=== PATIENT | female | born 1985 | race Caucasian/White ===

== ENCOUNTER 2017-10-21 13:05 | Inpatient (IN) | payer OTHER ==
[~2017-10-21] VITALS: Ht 157.5 cm; Wt 76.7 kg
[2017-10-21] MEDS ORDERED: IV NS 0.9% 1,000 ML BAG IV ONE ×2 (13:30→15:00)
[2017-10-21] MEDS ORDERED: ONDANSETRON HCL/PF 4 MG/2 ML VIAL IVP ONE (13:30)
[2017-10-21] MEDS ORDERED: HYDROMORPHONE INJ 2 MG/ML DISP.SYRIN IV ONE (13:30)
[2017-10-21] MEDS ORDERED: ONDANSETRON HCL/PF 4 MG/2 ML VIAL ONE (13:42)
[2017-10-21] MEDS ORDERED: HYDROMORPHONE INJ 2 MG/ML DISP.SYRIN ONE (13:44)
--- NOTE | 2017-10-21 13:52 | NUR ---
pt rec 'd to e c/o 01/30 abd pain crying guraded iv strted 20g left labs sent to lab iv fluids , zofran 4 mg ivpa nd dilaudid 1 mg ivp now fammily at bedside vss AWAITING EVALUATION BY ER PROVIDER.
[2017-10-21 13:56] LABS: BASOPHILS # (AUTO) 0.3 /CMM (0.0-0.2); BASOPHILS % (AUTO) 1.6 % (0.0-2.0); HEMATOCRIT 41 % (33-45); HEMOGLOBIN 14.1 g/dL (11.5-14.8); LYMPHOCYTES # (AUTO) 0.5 /CMM (0.8-4.8); LYMPHOCYTES % (AUTO) 2.3 % (20.0-44.0); MEAN CORPUSCULAR HEMOGLOBIN 32 PG (26.0-33.0); MEAN CORPUSCULAR HGB CONC 34 g/dl (31.0-36.0); MEAN CORPUSCULAR VOLUME 94 fL (82-100); MONOCYTES # (AUTO) 0.3 /CMM (0.1-1.30); MONOCYTES % (AUTO) 1.4 % (2.0-12.0); NEUTROPHILS # (AUTO) 18.7 /CMM (1.8-8.9); NEUTROPHILS % (AUTO) 94.7 % (43.0-81.0); PLATELET COUNT (AUTO) 519 /CMM (150-450); RDW COEFFICIENT OF VARIATION 12.2 (11.5-15.0); RED BLOOD CELL COUNT(AUTO) 4.39 MIL/uL (4.0-5.2); WHITE BLOOD COUNT (AUTO) 19.8 K/uL (4.3-11.0)
[2017-10-21 14:17] LABS: INR 0.86 (0.85-1.15)
[2017-10-21 14:29] LABS: BILIRUBIN,DIRECT 6.9 mg/dL (0.0-0.2); BILIRUBIN,TOTAL 8.3 mg/dL (0.2-1.0); CALCIUM, SERUM 9.4 mg/dL (8.5-10.1); CREATININE 0.7 mg/dL (0.6-1.3); POTASSIUM 3.2 mmol/L (3.5-5.1); TOTAL PROTEIN, SERUM 7.6 g/dL (6.4-8.2)
--- NOTE | 2017-10-21 14:52 | NUR ---
iv ns bag 2 given per md order zoysn given per md cont to pedro
[2017-10-21] MEDS ORDERED: PIPERACILLIN /TAZOBACTAM 3.375 G in IV D5W 50 ML IV ONE (15:00)
[2017-10-21] MEDS ORDERED: IOHEXOL-300 100 ML VIAL IV ONE (15:05)
[2017-10-21] MEDS ORDERED: METOCLOPRAMIDE HCL 10 MG/2 ML VIAL ONE (15:09)
--- NOTE | 2017-10-21 15:24 | NUR ---
pt sent to ct reglan 10 mg ivp given per md emesis x2
[2017-10-21 15:59] LABS: APPEARANCE,URINE Clear (CLEAR); BILIRUBIN,URINE LARGE (NEGATIVE); BLOOD, URINE Negative Ery/uL (NEGATIVE); COLOR,URINE Dark (YELLOW); KETONES,URINE 80 (NEGATIVE); LEUKOCYTE ESTERASE ,URINE Trace (NEGATIVE); NITRITE, URINE Negative (NEGATIVE); PROTEIN,URINE Negative (NEGATIVE); UGLUCOSE Negative (NEGATIVE); UROBILINOGEN,URINE 0.2 EU/dL (0.2)
[2017-10-21 16:02] LABS: BACTERIA,URINE Few /HPF (None Seen); MUCUS,URINE Rare /LPF (None Seen); RBC,URINE 0-2 /HPF (0-2); SQUAMOUS EPITHELIAL CELL,UR Few /HPF (None Seen)
--- NOTE | 2017-10-21 16:14 | NUR ---
DR.RUTHERFORD MADELINE HOUSE VISITOR
--- NOTE | 2017-10-21 16:16 | NUR ---
CALLED NURSING SUP. FOR STE[facility]A BED
--- NOTE | 2017-10-21 16:37 | NUR ---
CALLED REPORT PT [facility] FOR TRANSFER VSS PREOPRT TO [facility]
[2017-10-21] MEDS ORDERED: MAG HYDROX/AL HYDROX/SIMETH 30 ML UDC PO PRN (17:00)
[2017-10-21] MEDS ORDERED: ACETAMINOPHEN 325 MG TABLET PO PRN (17:00)
[2017-10-21] MEDS ORDERED: HYDROCODONE/APAP 5/325MG 1 EACH TABLET PO PRN (17:00)
[2017-10-21] MEDS ORDERED: ZOLPIDEM TARTRATE 5 MG TABLET PO PRN (17:00)
[2017-10-21] MEDS ORDERED: MORPHINE SULFATE INJ 2 MG/ML DISP.SYRIN IV PRN (17:00)
[2017-10-21] MEDS ORDERED: MAGNESIUM HYDROXIDE 30 ML UDC PO PRN (17:00)
[2017-10-21] MEDS ORDERED: Z GUARD REMEDY 2 OZ OINT TP PRN (17:00)
[2017-10-21] MEDS ORDERED: ONDANSETRON HCL/PF 4 MG/2 ML VIAL IVP PRN (17:00)
--- NOTE | 2017-10-21 17:30 | NUR ---
STELLA RN NOTES: ADMITTED A STELLA PT FROM ER WITH A DIAGNOSIS OF BILIARY OBSTRUCTION. ALERT, ORIENTED X4. ABLE TO MAKE NEEDS KNOWN. ON O2 2LPM NC, 97% O2 SAT. COMPLAINED OF 6/10 ABDOMINAL PAIN. ON TELE MONITOR, SINUS TACHY HR 109. IV ON LEFT AC G20, INTACT AND PATENT WITH IV NS RUNNING 125ML/HR, INFUSING WELL. SKIN IS INTACT. VITAL SIGNS TAKEN AND RECORDED. KEPT PT CLEAN, DRY AND COMFORTABLE. SAFETY AND FALL PRECAUTIONS OBSERVED AND MAINTAINED. CALL LIGHT WITHIN REACH. WILL ENDORSE TO CHUCK SPLITTER FOR YOBANY.
[2017-10-21] MEDS: IV NS 0.9% 1,000 ML IV SCH (17:57)
[2017-10-21 18:00] VITALS: BP 94/52
[2017-10-21] MEDS: POTASSIUM CL. PREMIX PERIPHER. 50 ML IV SCH ×3 (19:52→23:05)
[2017-10-21 20:00] VITALS: BP 91/41
--- NOTE | 2017-10-21 22:19 | NUR ---
RN NOTE TRANSFERRED CARE TO LUPE TIAN FOR CONTINUITY OF CARE.
--- NOTE | 2017-10-21 22:25 | NUR ---
STELLA RN NOTES, RECEIVED PATIENT FROM ASM[facility] SANTANA FOR CONTINUATION OF CARE.
[2017-10-22] VITALS: BP 101/60
[2017-10-22] MEDS: POTASSIUM CL. PREMIX PERIPHER. 50 ML IV SCH (00:13)
[2017-10-22] MEDS: PIPERACILLIN /TAZOBACTAM 3.375 G in IV D5W 50 ML IV SCH ×3 (00:19→11:48)
[2017-10-22] MEDS: IV NS 0.9% 1,000 ML IV SCH ×2 (03:46→09:00)
[2017-10-22 04:00] VITALS: BP 94/43
--- NOTE | 2017-10-22 04:25 | NUR ---
0425 Dr. Taylor notified of critical blood culture preliminary result with no order made.
[2017-10-22 06:23] LABS: CALCIUM, SERUM 8.3 mg/dL (8.5-10.1); CREATININE 0.6 mg/dL (0.6-1.3); MAGNESIUM 2.1 mg/dL (1.8-2.4); PHOSPHORUS 2.8 mg/dL (2.5-4.9); POTASSIUM 3.7 mmol/L (3.5-5.1)
[2017-10-22 06:26] LABS: BASOPHILS # (AUTO) 0.1 /CMM (0.0-0.2); BASOPHILS % (AUTO) 0.4 % (0.0-2.0); EOSINOPHILS % (AUTO) 0.1 % (0.0-6.0); HEMATOCRIT 33 % (33-45); HEMOGLOBIN 11.4 g/dL (11.5-14.8); LYMPHOCYTES # (AUTO) 2.3 /CMM (0.8-4.8); LYMPHOCYTES % (AUTO) 8.9 % (20.0-44.0); MEAN CORPUSCULAR HEMOGLOBIN 33 PG (26.0-33.0); MEAN CORPUSCULAR HGB CONC 35 g/dl (31.0-36.0); MEAN CORPUSCULAR VOLUME 95 fL (82-100); MONOCYTES # (AUTO) 0.9 /CMM (0.1-1.30); MONOCYTES % (AUTO) 3.4 % (2.0-12.0); NEUTROPHILS # (AUTO) 22.5 /CMM (1.8-8.9); NEUTROPHILS % (AUTO) 87.2 % (43.0-81.0); PLATELET COUNT (AUTO) 374 /CMM (150-450); RDW COEFFICIENT OF VARIATION 12.6 (11.5-15.0); RED BLOOD CELL COUNT(AUTO) 3.47 MIL/uL (4.0-5.2); WHITE BLOOD COUNT (AUTO) 25.8 K/uL (4.3-11.0)
--- NOTE | 2017-10-22 06:57 | NUR ---
STELLA RN NOTES, PATIENT AWAKE IN BED AT THIS TIME, ALERT AND ORIENTED ABLE TO COMMUNICATE NEEDS AND CONCERNS, BREATHING EVEN AND UNLABORED, ON 2LPM VIA NC SATURATION >94%, SR IN THE INSTANT POTATO PROCESSING SUPERVISOR, IVF INFUSING WELL AND PATIENT TOLERATED WELL, IV SITE INTACT AND PATENT, NO S/S OF INFILTRATION NOTED AT THIS TIME, ALL NEEDS PROVIDED, CALL LIGHT W/I REACH, NO C/O PAIN OR DISCOMFORT THROUGHOUT THE SHIFT, WILL ENDORSE CONTINUITY OF CARE TO ONCOMING NURSE.
--- NOTE | 2017-10-22 07:30 | NUR ---
STELLA RN AM NOTES: PATIENT AWAKE IN BED, AO X 4, ON 2L O2 VIA NC, NOT IN ANY DISTRESS, RESPIRATION UNLABORED, ON TELEMONITOR SR HR 70, DENIES ANY PAIN, LEFT AF G 20 WITH ND AT 125 ML/HR INFUSING WELL, SITE CLEAR. ON CLEAR LIQUID, NO NAUSEA/NO VOMITING, CALL LIGHT W/I REACH, FOR POSSIBLE TRANSFER TO [facility] TODAY? AMBULATORY. WILL CONTINUE TO MONITOR.
[2017-10-22 08:00] VITALS: BP 97/35
[2017-10-22 08:44] LABS: ALBUMIN 2.1 g/dL (3.4-5.0); BILIRUBIN,TOTAL 5.9 mg/dL (0.2-1.0); TOTAL PROTEIN, SERUM 5.7 g/dL (6.4-8.2)
[2017-10-22 09:20] LABS: BAND % (MANUAL) 11 % (0.0-5.0); LYMPHOCYTES % (MANUAL) 6 % (16-48); MONOCYTES % (MANUAL) 5 % (0-11.0); NEUTROPHILS % (MANUAL) 78 (42-76)
--- NOTE | 2017-10-22 09:30 | NUR ---
STELLA RN NOTES IVF STILL ONGOING. SCHEDULED 0900 NS NOT ADMINISTERED.
[2017-10-22] MEDS ORDERED: IV NS 0.9% 1,000 ML IV PRN (10:00)
--- NOTE | 2017-10-22 11:48 | NUR ---
STELLA RN NOTES STARTED ZOSYN IV.
[2017-10-22 12:00] VITALS: BP 94/39
[2017-10-22] MEDS ORDERED: PIPE3.379 IV (12:08)
[2017-10-22 16:00] VITALS: BP_SYST 99; BP_DIAS 37; BP_DIAS 38
--- NOTE | 2017-10-22 17:24 | NUR ---
WILLOW ANALYST NOTES REPORT GIVEN TO ARVIND TIAN AT [facility]. CIGAR BANDER HAND IS 1800
--- NOTE | 2017-10-22 18:08 | NUR ---
HOLE DIGGER OPERATOR NOTES PATIENT PICKED UP BY 2 AMBULANCE CREW TO TRANSPORT PATIENT TO [facility] PER MD FOR ERCP. RE[PORT GIVEN TO ARVIND EARLIER. PROVIDED DC INSTRUCTIONS, MED RECON LIST AND HEALTH TEACHINGS. PROVIDED CD OF IMAGING DIAGNOSTICS. PATIENT WITH LEFT AC G 20 FLUSHES WELL, SITE CLEAR. ON CLEAR LIQUID. NO SKIN ISSUES. ALL BELONGINGS CHECKED AND RETURNED. ALL PAPERWORKS SIGNED. WILL BE TRANSPORTED VIA AMBULANCE. STABLE. NOT IN ANY DISTRESS.
== END 2017-10-22 18:20 | disposition short-term general hospital (02) | DRG 720 ==
LOC: ER 13:12 → TELE-TD 17:08 → TELE1 10-22 16:18
PROVIDERS: ADMIT Internal Medicine; ATTEND Internal Medicine
DX: A41.9 Sepsis, unspecified organism (principal); K80.51 Calculus of bile duct without cholangitis or cholecystitis with obstruction; D72.829 Elevated white blood cell count, unspecified; R74.0 Nonspecific elevation of levels of transaminase and lactic acid dehydrogenase [LDH]; Z90.49 Acquired absence of other specified parts of digestive tract
CPT/HCPCS: 36415; 71045-TC; 80048-TC; 80076-TC; 81000-TC; 83605-TC; 83690-TC; 83735-TC; 84100-TC; 84703-TC; 85025-TC; 85730-TC; 87040-TC; 87081-TC; 87086-TC; 87186-TC; A4606; J1170; J2270; J2405; J2543; J2765; J3480; J3490; J7030; J7060; Q9967; Z7610

== ENCOUNTER 2018-06-02 07:11 | Emergency (ER) | payer OTHER ==
[~2018-06-02] VITALS: Ht 157.5 cm; Wt 76.2 kg
[~2018-06-02 07:11] MED LIST: PIPE3.379 IV
[2018-06-02 07:19] VITALS: BP 109/69
[2018-06-02] MEDS ORDERED: IBUPROFEN 400 MG TABLET ONE (07:58)
[2018-06-02] MEDS ORDERED: IBUPROFEN 400 MG TABLET PO ONE (08:00)
--- NOTE | 2018-06-02 09:08 | NUR ---
Patient discharged to home in stable condition. Written and verbal after care instructions given. Patient verbalizes understanding of instruction.
== END 2018-06-02 09:07 | disposition home or self-care (01) ==
LOC: ER 07:11
DX: S63.592A Other specified sprain of left wrist, initial encounter (principal); Z90.49 Acquired absence of other specified parts of digestive tract; X50.9XXA Other and unspecified overexertion or strenuous movements or postures, initial encounter; Y93.E2 Activity, laundry; Y92.89 Other specified places as the place of occurrence of the external cause; Y99.8 Other external cause status
CPT/HCPCS: 29125; 73110; 99283; A4606